=== PATIENT | male | born 1950 | race Caucasian/White ===

== ENCOUNTER → 2020-05-05 | Outpatient (CLI) | payer OTHER ==
--- NOTE | 2020-05-25 14:49 | SLEEPCENT ---
DATE: 05/05/2020 ORDERED BY: Dr. Tye Shabazz Nocturnal polysomnography was performed for evaluation of sleep physiology. There was 8 hours and 58 minutes of data reviewed. There was 361 minutes of sleep identified. Sleep latency was prolonged at 44 minutes. REM latency was normal at 89 minutes. Sleep architecture showed fragmentation and periods of wake. There were four REM cycles noted. Overall sleep efficiency is 71%. The patient's electrocardiogram showed a sinus rhythm with an average heart rate of 62 beats per minute. EEG showed normal waveforms for wake and sleep. There were 63 respiratory events identified of 10 seconds in duration or greater, for an apnea-hypopnea index of 10.5. The events were obstructive, not exclusive to sleep stage nor body posture. Arousals from respiratory events occurred 6.3 times per hour, and oxygen desaturations were seen below 90%. Remaining measures of sleep physiology were normal. IMPRESSION: Obstructive sleep apnea syndrome (G47.33). Apnea-hypopnea index 10.5. RECOMMENDATION: The patient should be encouraged to return to the sleep disorder center for pressure therapy. In the interim, alcohol and sedative avoidance should be practiced and caution exercised during the operation of motor vehicles. MTDD
== END ==
LOC: M SLEEP 20:00
PROVIDERS: ATTEND Internal Medicine
DX: G47.33 Obstructive sleep apnea (adult) (pediatric) (principal)